=== PATIENT | male | born 1950 | race African-American/Black ===

== ENCOUNTER 2016-09-12 03:36 | Emergency (ER) | payer OTHER ==
[~2016-09-12] VITALS: Ht 188 cm; Wt 111.1 kg
[2016-09-12 04:01] LABS: Basophils # (auto) 0 uL; Basophils % (auto) 0.8 % (0.0-2.0); DEFINITIVE VIEW TRANSMISSION; Eosinophils # (auto) 0.1 uL; Eosinophils % (auto) 1.2 % (0.0-7.0); Hematocrit 40.5 % (41.0-53.0); Hemoglobin 12.2 g/dL (13.5-17.5); Lymphocytes # (auto) 1.3 uL; Lymphocytes % (auto) 26.2 % (10.0-50.0); Mean Corpuscular Hemoglobin 23.5 pg (28.0-32.0); Mean Corpuscular Hgb Conc. 30.1 g/dL (32.0-36.0); Mean Platelet Volume 7.7 fL (7.4-10.4); Monocytes # (auto) 0.8 uL; Monocytes % (auto) 15.8 % (0.0-12.0); Neutrophils # (auto) 2.8 uL; Platelet Count (auto) 247 10^3/uL (140-450); Red Cell Distribution Width 15.8 % (11.6-16.0)
[2016-09-12 04:20] LABS: Albumin 3.8 g/dL (3.4-5.0); BUN/Creatinine Ratio 17.9; Calcium 8.7 mg/dL (8.5-10.1); Potassium 3.2 mmol/L (3.5-5.1)
[2016-09-12 04:23] LABS: Bilirubin, Total 0.2 mg/dL (0.2-1.0); Total Protein 7.7 g/dL (6.4-8.2)
[2016-09-12 04:26] LABS: B-Type Natriuretic Peptide 15.67 pg/mL (0-100)
[2016-09-12 04:30] LABS: Temperature: 21.6 C (20.0-25.0)
[2016-09-12 04:43] LABS: INR 1.01 (0.9-1.15); Partial Thromboplastin Time 26.9 sec (22.64-33.71); Prothrombin Time 10.4 sec (9.37-12.3)
[2016-09-12] MEDS ORDERED: LIDOCAINE VISCOUS 2% 15ML UD PO ONE (04:45)
[2016-09-12] MEDS ORDERED: ALUM & MAG HYDROX-SIMETH LIQ(MAALOX) 30 ML PO ONE (04:45)
[2016-09-12] MEDS ORDERED: DONNATAL 5ml ORAL Elix (BELLADONNA ALK-PHENOBARB) PO ONE (04:45)
[2016-09-12 05:01] VITALS: BP 140/81
== END 2016-09-12 06:20 | disposition home or self-care (01) ==
LOC: ER 03:43
DX: I10 Essential (primary) hypertension (principal); K21.9 Gastro-esophageal reflux disease without esophagitis
CPT/HCPCS: 36415; 71010; 80053; 83735; 83880; 84484; 85025; 85610; 85730; 93005

== ENCOUNTER 2017-03-06 05:14 | Emergency (ER) | payer OTHER ==
[~2017-03-06] VITALS: Ht 188 cm; Wt 111.1 kg
[2017-03-06 05:34] VITALS: BP 153/97
[2017-03-06] MEDS ORDERED: DONNATAL 5ml ORAL Elix (BELLADONNA ALK-PHENOBARB) PO ONE (07:15)
[2017-03-06] MEDS ORDERED: SODIUM CHLORIDE 0.9% 1,000 ML IV ONE ×2 (07:15)
[2017-03-06] MEDS ORDERED: PANTOPRAZOLE SODIUM 40 MG/10 ML VIAL IV ONE (07:15)
[2017-03-06] MEDS ORDERED: ALUM & MAG HYDROX-SIMETH LIQ(MAALOX) 30 ML PO ONE (07:15)
[2017-03-06] MEDS ORDERED: LIDOCAINE VISCOUS 2% 15ML UD PO ONE (07:15)
[2017-03-06] MEDS ORDERED: ONDANSETRON HCL 4 MG/2 ML VIAL IV ONE (07:15)
[2017-03-06] MEDS ORDERED: LOPERAMIDE HCL 2 MG CAP PO ONE (07:30)
[2017-03-06 07:53] LABS: Basophils # (auto) 0 uL; Basophils % (auto) 0.2 % (0.0-2.0); CONDITION Y; DEFINITIVE SEE PRINTOUT; Eosinophils # (auto) 0.1 uL; Eosinophils % (auto) 1.1 % (0.0-7.0); Hematocrit 40.9 % (41.0-53.0); Hemoglobin 13.3 g/dL (13.5-17.5); Lymphocytes # (auto) 0.9 uL; Lymphocytes % (auto) 19.3 % (10.0-50.0); Mean Corpuscular Hemoglobin 24.8 pg (28.0-32.0); Mean Corpuscular Hgb Conc. 32.4 g/dL (32.0-36.0); Mean Corpuscular Volume 76.5 fL (80.0-100.0); Mean Platelet Volume 8.1 fL (7.4-10.4); Monocytes # (auto) 0.7 uL; Monocytes % (auto) 15.4 % (0.0-12.0); Platelet Count (auto) 247 10^3/uL (140-450); Red Cell Distribution Width 15.1 % (11.6-16.0); White Blood Cell 4.6 10^3/uL (4.4-10.8)
[2017-03-06 08:06] LABS: Albumin 3.5 g/dL (3.4-5.0); Amylase 51 U/L (25-115); Anion Gap 11 (5-15); Aspartate Aminotransferase 23 U/L (15-37); BUN/Creatinine Ratio 13.7; Blood Urea Nitrogen 14 mg/dL (7-18); Carbon Dioxide 22 mmol/L (21-32); Chloride 106 mmol/L (98-107); GFR African American 95 mL/min; GFR Non-African American 78 mL/min; Glucose 100 mg/dL (74-106); Sodium 139 mmol/L (136-145)
[2017-03-06 08:12] LABS: INR 1.05 (0.9-1.15); Partial Thromboplastin Time 29.8 sec (22.64-33.71); Prothrombin Time 11.4 sec (9.37-12.3)
[2017-03-06] MEDS ORDERED: POTASSIUM CHL 10% (20 MEQ/15ML) ORAL SOLN PO ONE (08:15)
[2017-03-06 08:16] LABS: Alkaline Phosphatase 70 U/L (45-117); Bilirubin, Total 0.3 mg/dL (0.2-1.0); Total Protein 8.1 g/dL (6.4-8.2)
== END 2017-03-06 09:23 | disposition home or self-care (01) ==
LOC: ER 05:14
DX: E86.0 Dehydration (principal); K52.9 Noninfective gastroenteritis and colitis, unspecified; K21.9 Gastro-esophageal reflux disease without esophagitis; I10 Essential (primary) hypertension
CPT/HCPCS: 36415; 71010; 74176; 80053; 82150; 83690; 84484; 85025; 85610; 85730; 93005; 96361; 96374; 96375; 99285; C9113; J2405; J7030

== ENCOUNTER 2021-05-23 19:25 | Emergency (ER) | payer OTHER ==
[~2021-05-23] VITALS: Ht 188 cm; Wt 127.0 kg
[2021-05-24 02:12] VITALS: BP 189/93
== END 2021-05-24 02:17 | disposition home or self-care (01) ==
LOC: ER 19:26
DX: I82.401 Acute embolism and thrombosis of unspecified deep veins of right lower extremity (principal); E66.9 Obesity, unspecified; Z68.35 Body mass index [BMI] 35.0-35.9, adult; I10 Essential (primary) hypertension; K21.9 Gastro-esophageal reflux disease without esophagitis
CPT/HCPCS: 93971

== ENCOUNTER 2022-05-04 09:43 | Emergency (ER) | payer OTHER ==
[~2022-05-04] VITALS: Ht 188 cm; Wt 118.0 kg
[2022-05-04 10:31] LABS: Basophils # (auto) 0 10 ^3/uL (0-0.2); Eosinophils # (auto) 0 10 ^3/uL (0-0.8); Hemoglobin 12.3 g/dL (13.5-17.5); Lymphocytes # (auto) 1.2 10 ^3/uL (0.4-5.4); Monocytes # (auto) 0.5 10 ^3/uL (0-1.3); Neutrophils # (auto) 2.1 10 ^3/uL (1.6-8.6); Nucleated Red Blood Cells % 0.1 %
[2022-05-04 10:34] LABS: Basophils % (auto) 0.7 % (0.0-2.0); Eosinophils % (auto) 0.5 % (0.0-7.0); Hematocrit 37.9 % (41.0-53.0); Lymphocytes % (auto) 30.3 % (10.0-50.0); Mean Corpuscular Hemoglobin 24.7 pg (28.0-32.0); Mean Corpuscular Hgb Conc. 32.5 g/dL (32.0-36.0); Mean Corpuscular Volume 75.9 fL (80.0-100.0); Monocytes % (auto) 13.5 % (0.0-12.0); Red Blood Cells 4.99 10^6/uL (4.5-5.90); Red Cell Distribution Width 15.1 % (11.8-14.3); White Blood Cell 3.9 10^3/uL (4.4-10.8)
[2022-05-04 10:45] LABS: Albumin 3.7 g/dL (3.4-5.0); Calcium 8.6 mg/dL (8.5-10.1); Potassium 3.2 mmol/L (3.5-5.1)
[2022-05-04 10:51] LABS: Bilirubin, Total 0.5 mg/dL (0.2-1.0); Total Protein 7.4 g/dL (6.4-8.2)
[2022-05-04] MEDS ORDERED: ALUM & MAG HYDROX-SIMETH LIQ(MAALOX) 30 ML PO ONE (12:00)
[2022-05-04] MEDS ORDERED: LIDOCAINE VISCOUS 2% 15ML UD MT ONE (13:30)
[2022-05-04] MEDS ORDERED: DONNATAL 5ml ORAL Elix (BELLADONNA ALK-PHENOBARB) PO ONE (13:30)
[2022-05-04] MEDS ORDERED: MAA30LQ GT (15:27)
[2022-05-04] MEDS ORDERED: FAMO20TA10 GT (15:27)
[2022-05-04 15:36] VITALS: BP 158/80
== END 2022-05-04 15:21 | disposition home or self-care (01) ==
LOC: ER 09:43
DX: K21.9 Gastro-esophageal reflux disease without esophagitis (principal); I10 Essential (primary) hypertension
CPT/HCPCS: 36415; 80053; 84484; 85025; 93005

== ENCOUNTER 2025-05-22 10:46 | Inpatient (IN) | payer OTHER ==
[~2025-05-22] VITALS: Ht 188 cm; Wt 108.5 kg
[~2025-05-22 10:46] MED LIST: FAMO20TA10 GT; MAA30LQ GT
--- NOTE | 2025-05-22 10:56 | ED.PDOC ---
HPI Comments [id number]-male presents with c/c of chest discomfort. Patient endorses on sudden, unprovoked, and atraumatic onset of symptoms after waking up from his sleep at 0700, this morning. He describes pain as a burning sensation emanating from his abdomen and feeling similar to acid reflux/heartburn he has experienced in the past. No relief with [id number] Pepto-Bismol use. Patient reports excessive burping, exacerbated even further following 7 up carbonated soda intake. Usually, he states on being treated in the ER for this in the past with a GI cocktail. Denies any radiation. Denies any further acute symptoms at this time. Chief Complaint: Chest Pain Time Seen by MD: 10:55 Primary Care Provider: OLIVIA Reviewed Notes: Nurses Notes, Medications, Allergies Allergies: Coded Allergies: NO KNOWN ALLERGIES (Unverified , 11/19/14) Home Meds Active Scripts Famotidine (PEPCID TABLET) 20 Mg Tb, 20 MG GT BID, #30 TAB Prov:BRADEN LAMAS MD 05/04/22 Alum & Mag Hydrox-Simethicone (Maalox Plus) 30 Ml Ss, 30 ML GT Q6HPRN PRN, #355 ML Prov:BRADEN LAMAS MD 05/04/22 Information Source: Patient Mode of Arrival: Ambulatory Severity: Moderate Timing: Hours Duration: Since onset Prehospital treatment: Other (see HPI) Past Medical History PAST MEDICAL HISTORY: GERD, HTN Surgical History: Denies all surgeries Family History Family History: Reviewed,noncontributory to illness Social History Smoker: Non-Smoker Alcohol: Denies ETOH Use Drugs: Denies Drug Use Lives In: Home All Other Systems: Reviewed and Negative (Comprehensive review of systems are negative unless stated in HPI) Physical Exam General Appearance: No Apparent Distress, Normal HEENT: Normal ENT Inspection, Pharynx Normal, TMs Normal Neck: Full Range of Motion, Non-Tender, Normal, Normal Inspection Respiratory: Chest Non-Tender, Lungs Clear, No Accessory Muscle Use, No Respiratory Distress, Normal Breath Sounds Cardiovascular: No Edema, No JVD, No Murmur, No Gallop, Normal Peripheral Pulses, Regular Rate/Rhythm Breast Exam: Deferred Gastrointestinal: No Organomegaly, Non Tender, No Pulsatile Mass, Normal Bowel Sounds, Soft Genitalia: Deferred Pelvic: Deferred Rectal: Deferred Extremities: No calf tenderness, Normal capillary refill, Normal inspection, Normal range of motion, Non-tender, No pedal edema Musculoskeletal : Apperance: Normal Neurologic: Alert, straightedge man II-XII nml as Tested, No Motor Deficits, Normal Affect, Normal Mood, No Sensory Deficits Cerebellar Function: Normal Reflexes: Normal Skin: Dry, Normal Color, Warm Lymphatic: No Adenopathy EKG EKG #1: Comments 88 sinus rhythm prolonged left ventricular hypertrophy. No significant ST changes EKG #2: Comments EKG 2. At 11:47 a.m. sinus rhythm rate of 79 occasional PVCs. Left ventricular hypertrophy. Was a procedure done? Was a procedure done?: No CP Differential Dx Differential Diagnosis: Other Differential Diagnosis: Other Differential Diagnosis: Angina, Cholelithiasis, Costochondritis, Esophageal reflux/spasm, Gastritis, Myocardial Infarction, Pneumonia, Pneumothorax, Pulmonary Embolus, Other X-Ray, Labs, Meds, VS Vital Signs Date Time Temp Pulse Resp B/P (MAP) Pulse Ox O2 Delivery O2 Flow Rate FiO2 05/22/25 12:30 98.0 75 16 128/83 (98) 95 98.0 05/22/25 11:50 79 05/22/25 10:52 88 05/22/25 10:52 98.4 86 18 157/91 99 98.4 Lab Test 05/22/25 11:11 Range/Units White Blood Count 4.3 L 4.4-10.8 10^3/uL Red Blood Count 4.74 4.5-5.90 10^6/uL Hemoglobin 12.0 L 13.5-17.5 g/dL Hematocrit 36.3 L 41.0-53.0 % Mean Corpuscular Volume 76.7 L 80.0-100.0 fL Mean Corpuscular Hemoglobin 25.3 L 28.0-32.0 pg Mean Corpuscular Hemoglobin Concent 32.9 32.0-36.0 g/dL Red Cell Distribution Width 15.2 H 11.8-14.3 % Platelet Count 240 140-450 10^3/uL Mean Platelet Volume 8.1 6.9-10.8 fL Neutrophils (%) (Auto) 50.4 37.0-80.0 % Lymphocytes (%) (Auto) 36.9 10.0-50.0 % Monocytes (%) (Auto) 11.9 0.0-12.0 % Eosinophils (%) (Auto) 0.6 0.0-7.0 % Basophils (%) (Auto) 0.2 0.0-2.0 % Neutrophils # (Auto) 2.2 1.6-8.6 10 ^3/uL Lymphocytes # (Auto) 1.6 0.4-5.4 10 ^3/uL Monocytes # (Auto) 0.5 0-1.3 10 ^3/uL Eosinophils # (Auto) 0 0-0.8 10 ^3/uL Basophils # (Auto) 0 0-0.2 10 ^3/uL Nucleated Red Blood Cells 0.1 % Sodium Level 139 136-145 mmol/L Potassium Level 2.9 L 3.5-5.1 mmol/L Chloride Level 100 98-107 mmol/L Carbon Dioxide Level 29 20-31 mmol/L Anion Gap 10 5-15 Blood Urea Nitrogen 9 9-23 mg/dL Creatinine 1.08 0.700-1.30 mg/dL Glomerular Filtration Rate Calc 72 >90 mL/min BUN/Creatinine Ratio 8.3 L 10.0-20.0 Serum Glucose 144 H 74-106 mg/dL Calcium Level 9.1 8.7-10.4 mg/dL Troponin I High Sensitivity 326 *H </=54 ng/L Current Medications Medications (Trade) Dose Ordered Sig/Jose Route Start Time Stop Time Status Last Admin Aspirin 162 mg ONCE ONCE PO 05/22/25 11:15 05/22/25 11:16 DC 05/22/25 12:43 Al Hydrox/Mg Hydrox/Simethicone (Maalox Plus) 30 ml ONCE ONCE PO 05/22/25 11:45 05/22/25 11:46 DC 05/22/25 12:44 Lidocaine HCl (Xylocaine 2% Viscous) 10 ml ONCE ONCE PO 05/22/25 11:45 05/22/25 11:46 DC 05/22/25 12:44 Ondansetron HCl (Zofran Po) 4 mg ONCE ONCE PO 05/22/25 11:45 05/22/25 11:46 DC 05/22/25 12:[address] [address] Ph: [phone] DIAGNOSTIC IMAGING Diagnostic Imaging Report : [id number] Signed PATIENT: SHARON OLIVA ACCT: [id number] UNIT: [id number] : 1950 LOC: ER ROOM / BED: / AGE / SEX: 75 / M ADM STATUS: REG ER SERVICE 1111 ORDERING PHYSICIAN: PORFIRIO DALEY MD PROCEDURE(s): CXR2 - CHEST TWO VIEWS ROUTINE REASON: Chest pain ORDER NUMBER(s): [id number], ACCESSION NUMBER(s): [id number] CLINICAL INFORMATION: Chest pain. TECHNIQUE: Frontal and lateral chest radiographs were obtained. COMPARISON: None FINDINGS: Lungs: Clear. Cardiac: Heart size is within normal limits. Pulmonary vasculature: Unremarkable Mediastinum/lizeth: Moderate atherosclerotic calcification of the aortic arch. Bones: No evidence of acute osseous abnormality. Other: No other significant finding. IMPRESSION: No evidence of acute disease in the chest. 75-year-old male presents here with chest discomfort that began this morning when he woke up. He states it feels like heartburn. He states it mcknight and he is burping up gas. He states he took 7 up and more gas came out. He states he is often in the ER for this and the GI cocktail helps. Denies any radiation to the left arm or left jaw. At this time I have ordered a CBC BMP troponin EKG chest x-ray. As well as a GI cocktail and Zofran. CBC BMP have returned mostly normal. He does have a low potassium of 2.9 which I have repleted. Troponin however is elevated at 326. Chest x-ray unremarkable. I had a long conversation with the patient and advised him I am concerned about an NSTEMI. He states he is continuing to have some chest discomfort. Despite the medications. Patient is agreeable to staying in the hospital. I have written for aspirin here in the ER. Time of 1ST Reevaluation: 11:25 Reevaluation 1ST: Unchanged Patient Education/Counseling: Diagnosis, Treatment Family Education/Counseling: No Family Present SEPSIS Sepsis Screen Physician Orders Electrocardigram (05/22/25 14:01) Troponin-I Hs (05/22/25 12:11) Troponin-I Hs (05/22/25 14:11) Chest Two Views Routine (05/22/25 11:11) Potassium Er Tablet (Klor-Con Tablet) (05/22/25 13:00) Vital Signs Date Time Temp Pulse Resp B/P (MAP) Pulse Ox O2 Delivery O2 Flow Rate FiO2 05/22/25 12:30 98.0 75 16 128/83 (98) 95 98.0 05/22/25 11:50 79 05/22/25 10:52 88 05/22/25 10:52 98.4 86 18 157/91 99 98.4 Laboratory Tests Test 05/22/25 11:11 White Blood Count 4.3 10^3/uL (4.4-10.8) L Medications Medications Dose Ordered Sig/Jose Route Start Time Stop Time Status Last Admin Dose Admin Al Hydrox/Mg Hydrox/Simethicone 30 ml ONCE ONCE PO 05/22/25 11:45 05/22/25 11:46 DC 05/22/25 12:44 Aspirin 162 mg ONCE ONCE PO 05/22/25 11:15 05/22/25 11:16 DC 05/22/25 12:43 Lidocaine HCl 10 ml ONCE ONCE PO 05/22/25 11:45 05/22/25 11:46 DC 05/22/25 12:44 Ondansetron HCl 4 mg ONCE ONCE PO 05/22/25 11:45 05/22/25 11:46 DC 05/22/25 12:43 Departure 1 Departure Time of Disposition: 12:57 Impression: Primary Impression: Chest pain Qualified Codes: R07.9 - Chest pain, unspecified Additional Impression: NSTEMI (non-ST elevated myocardial infarction) Disposition: ADMITTED INPATIENT Condition: Serious Critical Care Note Critical Care Time?: Yes (35 min-critical care time only) Stability Stability form required: No Heart Score Heart Score: Heart Score Response (Comments) Value History Moderate Suspicious 1 EKG Repolarization Disturb 1 Age >65 2 Risk Factors 1 or 2 risk factors 1 Troponin 1-2 x's Normal limit 1 Total 6 I personally scribed for PORFIRIO DALEY MD ([email or web address]) on 05/22/25 at 12:22. Electronically submitted by Roger Salgado ([email or web address]). I personally scribed for PORFIRIO DALEY MD ([email or web address]) on 05/22/25 at 12:27. Electronically submitted by Homa Alas ([facility]). PORFIRIO DALEY MD May 22, 2025 10:56
--- NOTE | 2025-05-22 11:02 | ECG ---
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
--- NOTE | 2025-05-22 11:44 | DVH ---
CLINICAL INFORMATION: Chest pain. TECHNIQUE: Frontal and lateral chest radiographs were obtained. COMPARISON: None FINDINGS: Lungs: Clear. Cardiac: Heart size is within normal limits. Pulmonary vasculature: Unremarkable Mediastinum/lizeth: Moderate atherosclerotic calcification of the aortic arch. Bones: No evidence of acute osseous abnormality. Other: No other significant finding. IMPRESSION: No evidence of acute disease in the chest.
[2025-05-22 11:47] LABS: Hemoglobin 12.0 g/dL (13.5-17.5)
[2025-05-22 11:48] LABS: Hematocrit 36.3 % (41.0-53.0); Mean Corpuscular Hemoglobin 25.3 pg (28.0-32.0); Mean Corpuscular Volume 76.7 fL (80.0-100.0); Nucleated Red Blood Cells % 0.1 %
[2025-05-22 11:56] LABS: Chloride 100 mmol/L (98-107); Sodium 139 mmol/L (136-145)
[2025-05-22 11:57] LABS: Anion Gap 10 (5-15); Calcium 9.1 mg/dL (8.7-10.4); Carbon Dioxide 29 mmol/L (20-31)
[2025-05-22 12:02] LABS: BUN/Creatinine Ratio 8.3 (10.0-20.0); Blood Urea Nitrogen 9 mg/dL (9-23)
[2025-05-22 12:06] LABS: Glucose 144 mg/dL (74-106); Potassium 2.9 mmol/L (3.5-5.1)
[2025-05-22] MEDS: ONDANSETRON ODT 4 MG TAB PO ONE (12:43)
[2025-05-22] MEDS: LIDOCAINE VISCOUS 2% 15ML UD PO ONE (12:44)
[2025-05-22] MEDS: MAALOX PLUS or MAALOX 30 ML PO ONE (12:44)
--- NOTE | 2025-05-22 12:44 | ECG ---
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
[2025-05-22] MEDS: POTASSIUM CHL 20 Meq TABLET PO ONE (14:22)
[2025-05-22] MEDS ORDERED: NIFE1TAB30 PO (15:38)
--- NOTE | 2025-05-22 16:14 | DVHHP2 ---
History of Present Illness Reason for Visit: Chest pain History of Present Illness Jeffery Marrero is a 75-year-old male with past medical history of GERD and hypertension who presents to the ED with chest pain that started this morning at 7, reports that it woke him up from his sleep. Reports it as a burning sensation around his epigastric area reports that the burning radiates from the left to the right. He reports that there are no triggering or alleviating factors. Patient reports that in the past he had excessive burping which exacerbated the pain. He also reports that he received a GI cocktail in the past. Patient also reports that he is ambulatory without any DMEs. Patient denies any recent trauma or injury, recent sick contacts, recent travels, recent ingestion of spoiled food, shortness of breath, fever, chills, lightheadedness, weakness, dizziness, abdominal pain, nausea, vomiting, diarrhea, or urinary symptoms. Cardiovascular: HTN GI: GERD Past Surgical History: None Family History: None Smoke: No ALCOHOL: none Drugs: None Lives: with Family Domestic Violence: Neg Review of Systems Cardiovascular: Chest Pain Allergies: Coded Allergies: NO KNOWN ALLERGIES (Unverified , 11/19/14) Exam Vital Signs Vital Signs Date Time Temp Pulse Resp B/P (MAP) Pulse Ox O2 Delivery O2 Flow Rate FiO2 05/22/25 14:31 97.8 83 18 146/75 (98) 99 97.8 General Appearance: Alert, Oriented X3, Cooperative, No acute distress HEENT: Atraumatic, PERRLA, EOMI, Mucous membr. moist/pink Respiratory: Normal air movement Cardiovascular: Regular rate, Normal S1, Normal S2 Abdominal: Normal bowel sounds, Soft Extremities: No clubbing, No cyanosis, No edema, Normal pulses Skin: No significant lesion Neuro: Normal speech, Strength at 5/5 X4 ext, Normal tone, Sensation intact Psych/Mental Status: Mental status NL, Mood NL Labs/Xrays Labs Test 05/22/25 14:51 05/22/25 11:11 Range/Units White Blood Count 4.3 L 4.4-10.8 10^3/uL Red Blood Count 4.74 4.5-5.90 10^6/uL Hemoglobin 12.0 L 13.5-17.5 g/dL Hematocrit 36.3 L 41.0-53.0 % Mean Corpuscular Volume 76.7 L 80.0-100.0 fL Mean Corpuscular Hemoglobin 25.3 L 28.0-32.0 pg Mean Corpuscular Hemoglobin Concent 32.9 32.0-36.0 g/dL Red Cell Distribution Width 15.2 H 11.8-14.3 % Platelet Count 240 140-450 10^3/uL Mean Platelet Volume 8.1 6.9-10.8 fL Neutrophils (%) (Auto) 50.4 37.0-80.0 % Lymphocytes (%) (Auto) 36.9 10.0-50.0 % Monocytes (%) (Auto) 11.9 0.0-12.0 % Eosinophils (%) (Auto) 0.6 0.0-7.0 % Basophils (%) (Auto) 0.2 0.0-2.0 % Neutrophils # (Auto) 2.2 1.6-8.6 10 ^3/uL Lymphocytes # (Auto) 1.6 0.4-5.4 10 ^3/uL Monocytes # (Auto) 0.5 0-1.3 10 ^3/uL Eosinophils # (Auto) 0 0-0.8 10 ^3/uL Basophils # (Auto) 0 0-0.2 10 ^3/uL Nucleated Red Blood Cells 0.1 % Sodium Level 139 136-145 mmol/L Potassium Level 2.9 L 3.5-5.1 mmol/L Chloride Level 100 98-107 mmol/L Carbon Dioxide Level 29 20-31 mmol/L Anion Gap 10 5-15 Blood Urea Nitrogen 9 9-23 mg/dL Creatinine 1.08 0.700-1.30 mg/dL Glomerular Filtration Rate Calc 72 >90 mL/min BUN/Creatinine Ratio 8.3 L 10.0-20.0 Serum Glucose 144 H 74-106 mg/dL Calcium Level 9.1 8.7-10.4 mg/dL CLINICAL INFORMATION: Chest pain. TECHNIQUE: Frontal and lateral chest radiographs were obtained. COMPARISON: None FINDINGS: Lungs: Clear. Cardiac: Heart size is within normal limits. Pulmonary vasculature: Unremarkable Mediastinum/lizeth: Moderate atherosclerotic calcification of the aortic arch. Bones: No evidence of acute osseous abnormality. Other: No other significant finding. IMPRESSION: No evidence of acute disease in the chest. SEPSIS Sepsis Screen Date sepsis recognized/suspect: May 22, 2025 Time Sepsis recognized/suspect: 1052 Recent Procedure: No On Antibiotic Therapy: No Respiratory Rate >20: No Heart Rate >90: No Temp<36 C (96.8 F) or >38.3 C: No SBP <90 or MAP <65 mmHG: No New Acute Mental Status Change: No Is the patient on CPAP, BIPAP,: No Physician Orders Electrocardigram (05/22/25 14:01) Troponin-I Hs (05/22/25 14:11) Chest Two Views Routine (05/22/25 11:11) * Cardiology Consult (05/22/25 14:18) Vital Signs Date Time Temp Pulse Resp B/P (MAP) Pulse Ox O2 Delivery O2 Flow Rate FiO2 05/22/25 14:31 97.8 83 18 146/75 (98) 99 97.8 05/22/25 13:48 76 05/22/25 12:30 98.0 75 16 128/83 (98) 95 98.0 05/22/25 11:50 79 05/22/25 10:52 88 05/22/25 10:52 98.4 86 18 157/91 99 98.4 Laboratory Tests Test 05/22/25 11:11 White Blood Count 4.3 10^3/uL (4.4-10.8) L Medications Medications Dose Ordered Sig/Jose Route Start Time Stop Time Status Last Admin Dose Admin Al Hydrox/Mg Hydrox/Simethicone 30 ml ONCE ONCE PO 05/22/25 11:45 05/22/25 11:46 DC 05/22/25 12:44 30 ML Aspirin 162 mg ONCE ONCE PO 05/22/25 11:15 05/22/25 11:16 DC 05/22/25 12:43 162 MG Lidocaine HCl 10 ml ONCE ONCE PO 05/22/25 11:45 05/22/25 11:46 DC 05/22/25 12:44 10 ML Ondansetron HCl 4 mg ONCE ONCE PO 05/22/25 11:45 05/22/25 11:46 DC 05/22/25 12:43 4 MG Potassium Chloride 40 meq ONCE ONCE PO 05/22/25 13:00 05/22/25 13:01 DC 05/22/25 14:22 40 MEQ Assessment/Plan Assessment/Plan Assessment NSTEMI Hypokalemia Hyperglycemia History of GERD [facility] of [facility] ISS and Accu-Cheks Aspirin + statin ACS workup Echo ordered Antiemetics Pain management Chest x-ray Trend troponins EKGs noted NPO until Cardiology sees Home medications reconciled DVT prophylaxis-therapeutic Lovenox PUD prophylaxis-PPIs Discussed plan of care with patient and nurse [place] [id number] Preventive counseling healthy eating habits, physical activity, and regular checkups Plan discussed with: Patient Date of Service: May 22, 2025 Billing Provider: DAVI MADSEN Common Visit Codes: [id number] INP/OBS CARE (HIGH) Secondary Visit Codes: [id number] COUNSELING IND DAVI MADSEN May 22, 2025 16:14
[2025-05-22] MEDS: ONDANSETRON HCL 4 MG/2 ML VIAL IV ONE (16:15)
[2025-05-22] MEDS ORDERED: MORPHINE SULFATE INJ 2 MG/ml SYRG IV PRN (16:15)
[2025-05-22] MEDS: MORPHINE SULFATE 4 MG/ML SYR/VIAL IV ONE (16:15)
[2025-05-22] MEDS ORDERED: MORPHINE SULFATE 4 MG/ML SYR/VIAL IV PRN (16:15)
[2025-05-22] MEDS ORDERED: ONDANSETRON HCL 4 MG/2 ML VIAL IV PRN (16:15)
[2025-05-22] MEDS ORDERED: NITROGLYCERIN 0.4 MG SL TAB SL PRN ×2 (16:15)
[2025-05-22 16:58] VITALS: PULSE 66; RESP 14; O2SAT 98
[2025-05-22 17:02] LABS: Urine Protein, UAD Negative (Negative)
[2025-05-22 17:13] LABS: Amphetamine Screen, Urine Neg (NEGATIVE); Barbiturate Scree,Urine Neg (NEGATIVE); Benzodiazephine Screen, Urine Neg (NEGATIVE); Cannabinoid Screen, Urine Neg (NEGATIVE); Cocaine Screen, Urine Neg (NEGATIVE); Opiate Scree,Urine Neg (NEGATIVE); Phencyclidine Screen, Urine Neg (NEGATIVE)
[2025-05-22] MEDS: FAMOTIDINE (10MG/ML) 2ML VL IV SCH (17:39)
--- NOTE | 2025-05-22 18:08 | ECG ---
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
[2025-05-22] MEDS ORDERED: HEPARIN DRIP/D5W 100UNITS/ML 250 ML IV SCH (18:45)
--- NOTE | 2025-05-22 18:48 | DVHINCON2 ---
Date Seen: May 22, [address] Rodrigues Reason for Consultation NSTEMI History of Present Illness 75-year-old male presents to the ED with complaint of epigastric pain that began this morning. Torch Operator consulted due to rising troponin levels ( 326, 827, 2103, 5578) . The patient reports waking up with epigastric discomfort this morning and initially took Pepto-Bismol with some relief. However, the pain recurred a few hours later, prompting him to come to the emergency department. On assessment he reports ongoing mild epigastric pain. He denies diaphoresis shortness of breath, or dyspnea his blood pressure is elevated at one 60/82 mmHg. He reports having two prior coronary angiograms, the most recent about 10 years ago, with no interventions performed. He denies tobacco, alcohol, or illicit drug use. Past medical history of hypertension and GERD. Past Medical History As stated in HPI Past Surgical History Coronary angiogram Family History: Patient reports no known family medical history. Family History Reviewed, non-contributory to the management of this case. Social History The patient lives at home, denies smoking, alcohol or illicit drugs abuse. Allergies: Coded Allergies: NO KNOWN ALLERGIES (Unverified , 11/19/14) Home Meds Active Scripts Famotidine (PEPCID TABLET) 20 Mg Tb, 20 MG GT BID, #30 TAB Prov:BRADEN LAMAS MD 05/04/22 Alum & Mag Hydrox-Simethicone (Maalox Plus) 30 Ml Ss, 30 ML GT Q6HPRN PRN, #355 ML Prov:BRAEDN LAMAS MD 05/04/22 Reported Medications Nifedipine (Nifedipine Er) 60 Mg Tab, 1 TAB PO DAILY 05/22/25 Current Medications Current Medications Medications (Trade) Dose Ordered Sig/Jose Route PRN Reason Start Time Stop Time Status Last Admin Famotidine (Pepcid Tablet) 20 mg BID GT 05/22/25 22:00 Cancel Enoxaparin Sodium (Lovenox) 110 mg Q12HR SC 05/22/25 22:00 Aspirin 81 mg DAILY PO 05/23/25 10:00 Atorvastatin Calcium (Lipitor) 40 mg HS PO 05/22/25 22:00 05/22/25 18:41 DC Morphine Sulfate 2 mg Q30MP PRN IV FOR CHEST PAIN 05/22/25 16:15 05/22/25 16:21 DC Acetaminophen (Tylenol Tablet) 650 mg Q6HP PRN PO MILD PAIN (1-3 PAIN SCALE) 05/22/25 16:15 Nitroglycerin (Ntrostat Sublingual) 0.4 mg Q5MINP PRN SL FOR CHEST PAIN 05/22/25 16:15 05/22/25 16:22 DC Ondansetron HCl (Zofran) 4 mg Q4HP PRN IV NAUSEA / VOMITING 05/22/25 16:15 Nitroglycerin (Ntrostat Sublingual) 0.4 mg Q5MINP PRN SL FOR CHEST PAIN 05/22/25 16:15 Morphine Sulfate 2 mg Q30M PRN IV FOR CHEST PAIN 05/22/25 16:15 Famotidine (Pepcid Injection) 20 mg DAILY IV 05/22/25 17:15 05/22/25 17:39 Heparin Sodium/ Dextrose 250 ml @ 13.368 mls/ hr [id number] IV 05/22/25 18:45 UNV Atorvastatin Calcium (Lipitor) 80 mg HS PO 05/22/25 22:00 UNV Review of Systems Constitutional: No symptom reported Ears, Nose, & Throat: No symptom reported Eyes: No symptom reported Neurological: No symptoms reported Pulmonary/Respiratory: No symptom reported Cardiovascular: Epigastric pain Gastrointestinal: No symptom reported Genitourinary: No symptom reported Musculoskeletal: No symptom reported Skin: No symptom reported Psychiatric: No symptom reported Endocrine: No symptom reported Hemotologic/Lymphatic: No symptom reported Vital Signs Vital Signs Date Time Temp Pulse Resp B/P (MAP) Pulse Ox O2 Delivery O2 Flow Rate FiO2 05/22/25 16:58 98.3 70 16 146/80 (102) 98 98.3 05/22/25 16:58 Room Air* 0 21 Physical Exam INITIAL VITAL SIGNS: Reviewed by me GENERAL: Alert and interactive. No acute distress. HEAD: Head is normocephalic and atraumatic. EYES: EOMI, PERRL. No scleral icterus. No conjunctival injection. ENT: Moist mucous membranes. NECK: Supple, No masses, Full range of motion. RESPIRATORY: No tachypnea. Clear breath sounds bilaterally. No wheezing, rales, rhonchi. CV: Regular rate and rhythm. No murmurs, rubs, or gallops. GI/: Active bowel sounds, soft, nondistended, nontender. No guarding. No rebound. No masses. No CVA tenderness. INTEGUMENTARY: Warm and dry. No obvious rashes. NEUROLOGIC: Alert and oriented. Face is symmetric. Speech is normal. Moves all extremities equally. Labs/Diagnostic Data Labs Test 05/22/25 17:01 05/22/25 16:10 05/22/25 14:51 05/22/25 13:05 Range/Units Troponin I High Sensitivity 5578 *H </=54 ng/L Urine Color Colorless Yellow Urine Clarity Clear Clear Urine pH 6.0 5.0-9.0 Urine Specific [place] 1.004 1.001-1.035 Urine Protein Negative Negative Urine Ketones Negative Negative Urine Blood Negative Negative /uL Urine Nitrite Negative Negative Urine Bilirubin Negative Negative Urine Urobilinogen Normal Negative mg/dL Urine Leukocyte Esterase Negative Negative /uL Urine RBC <1 0 - 3 /hpf Urine Microscopic WBC < 1 0-3 /HPF Urine Squamous Epithelial Cells None seen <5 /hpf Urine Bacteria None seen None Seen /hpf Urine Glucose Normal Normal mg/dL Urine Opiates Screen Neg NEGATIVE Urine Fentanyl Screen Neg NEGATIVE Urine Barbiturates Screen Neg NEGATIVE Urine Phencyclidine Screen Neg NEGATIVE Urine Amphetamines Screen Neg NEGATIVE Urine Benzodiazepines Screen Neg NEGATIVE Urine Cocaine Screen Neg NEGATIVE Urine Cannabinoids Screen Neg NEGATIVE Thyroid Stimulating Hormone (TSH) 1.84 0.55-4.78 uIU/mL Test 05/22/25 11:11 Range/Units Eosinophils (%) (Auto) 0.6 0.0-7.0 % Eosinophils # (Auto) 0 0-0.8 10 ^3/uL Basophils # (Auto) 0 0-0.2 10 ^3/uL Nucleated Red Blood Cells 0.1 % Sodium Level 139 136-145 mmol/L Potassium Level 2.9 L 3.5-5.1 mmol/L Chloride Level 100 98-107 mmol/L Carbon Dioxide Level 29 20-31 mmol/L Anion Gap 10 5-15 Blood Urea Nitrogen 9 9-23 mg/dL Creatinine 1.08 0.700-1.30 mg/dL Glomerular Filtration Rate Calc 72 >90 mL/min BUN/Creatinine Ratio 8.3 L 10.0-20.0 Serum Glucose 144 H 74-106 mg/dL Hemoglobin A1c 5.6 <5.7 % A1C Calcium Level 9.1 8.7-10.4 mg/dL PROCEDURE(s): CXR2 - CHEST TWO VIEWS ROUTINE REASON: Chest pain ORDER NUMBER(s): [id number], ACCESSION NUMBER(s): [id number] CLINICAL INFORMATION: Chest pain. TECHNIQUE: Frontal and lateral chest radiographs were obtained. COMPARISON: None FINDINGS: Lungs: Clear. Cardiac: Heart size is within normal limits. Pulmonary vasculature: Unremarkable Mediastinum/lizeth: Moderate atherosclerotic calcification of the aortic arch. Bones: No evidence of acute osseous abnormality. Other: No other significant finding. IMPRESSION: No evidence of acute disease in the chest. Assessment Non-STEMI possible type 1 Rule out acute coronary syndrome Hypertension GERD Obesity Plan/Recommendation (Dr. Dumas ): NSTEMI with rising troponins. Plan for ischemic workup including echocardiogram and cardiac catheterization. Keep patient NPO after midnight. Initiate ACS protocol with heparin drip, nitroglycerin drip, beta laya, aspirin, and high- dose statins. Discussed plan with patient and agreed with left heart catheterization procedure. Close cardiac surveillance. This medical document was created using an electronic medical record system with voice recognition software and computerized dictation system. Although this document has been carefully reviewed, there might still be some phonetic and typographical errors. Occasional wrong-word or ``sound-alike substitutions may have occurred due to the inherent limitations of voice recognition software. These areas are purely typographical due to imperfections of the software programs and do not reflect any compromise in the patient's medical care. Please read the chart carefully and recognize, using context, where these substitutions have occurred. Plan discussed with: Patient Plan discussed with: Patient NYHA Physical activity limitations: NA Date of Service: May 22, 2025 Billing Provider: JR DUMAS MD Cardiology Common Codes: CONSULT ONLY Cardiology Consultation Codes: [id number] CONSULT <60MIN [facility] May 22, 2025 18:48
[2025-05-22 19:04] LABS: Hemoglobin 11.8 g/dL (13.5-17.5)
[2025-05-22 19:05] LABS: Hematocrit 36.2 % (41.0-53.0); Mean Corpuscular Hemoglobin 25.6 pg (28.0-32.0); Mean Corpuscular Volume 78.4 fL (80.0-100.0); Nucleated Red Blood Cells % 0.3 %
[2025-05-22 19:11] LABS: INR 1.05 (0.9-1.15); Partial Thromboplastin Time 28.8 SEC (24.5-34.5); Prothrombin Time 11.1 sec (9.3-11.8)
[2025-05-22] MEDS: HEPARIN SODIUM (PORCINE) 5000 UNITS/ML 1ML VIAL IV ONE (19:13)
[2025-05-22] MEDS: METOPROLOL TARTRATE 1MG/1ML-5ML VIAL IV ONE (20:14)
[2025-05-22] MEDS: HEPARIN DRIP/D5W 100UNITS/ML 250 ML IV SCH (20:23)
[2025-05-22] MEDS: SODIUM CHLORIDE 0.9% 1,000 ML IV SCH (20:30)
[2025-05-22] MEDS: NITROGLYCERIN 50MG/250ML 250 ML IV SCH (20:56)
[2025-05-22] MEDS ORDERED: ATORVASTATIN 20 MG TAB PO SCH (22:00)
[2025-05-22] MEDS ORDERED: ENOXAPARIN SOD 120 MG/0.8 ML SYRINGE SC SCH (22:00)
[2025-05-22] MEDS ORDERED: FAMOTIDINE 20 MG TAB GT SCH (22:00)
[2025-05-22] MEDS: ATORVASTATIN 20 MG TAB PO SCH (22:49)
--- NOTE | 2025-05-22 23:52 | DVHINCON2 ---
Date Seen: May 22, [address] Rodrigues Reason for Consultation NSTEMI History of Present Illness This is a 75-year-old male with a past medical history of hypertension and GERD presents to the ED with a complaint of epigastric pain that began this morning. The patient reports waking up with epigastric discomfort this morning and initially took Pepto-Bismol with some relief.However, the pain recurred a few hours later, prompting him to come to the emergency department. On assessment he reports ongoing mild epigastric pain. He denies diaphoresis shortness of breath, or dyspnea his blood pressure is elevated at one 60/82 mmHg. He reorts having two prior coronary angiograms, the most recent about 10 years ago, with no interventions performed. He denies tobacco, alcohol, or illicit drug use. Chest x-ray shows NAD. Cardiology was consulted due to rising troponin levels ( 326, 827, 2103, 5578) Past Medical History As stated in HPI Past Surgical History Coronary angiogram Family History: Patient reports no known family medical history. Allergies: Coded Allergies: NO KNOWN ALLERGIES (Unverified , 11/19/14) Home Meds Active Scripts Famotidine (PEPCID TABLET) 20 Mg Tb, 20 MG GT BID, #30 TAB Prov:BRADEN LAMAS MD 05/04/22 Alum & Mag Hydrox-Simethicone (Maalox Plus) 30 Ml Ss, 30 ML GT Q6HPRN PRN, #355 ML Prov:BRADEN LAMAS MD 05/04/22 Reported Medications Nifedipine (Nifedipine Er) 60 Mg Tab, 1 TAB PO DAILY 05/22/25 Current Medications Current Medications Medications (Trade) Dose Ordered Sig/Jose Route PRN Reason Start Time Stop Time Status Last Admin Famotidine (Pepcid Tablet) 20 mg BID GT 05/22/25 22:00 Cancel Enoxaparin Sodium (Lovenox) 110 mg Q12HR SC 05/22/25 22:00 Aspirin 81 mg DAILY PO 05/23/25 10:00 Atorvastatin Calcium (Lipitor) 40 mg HS PO 05/22/25 22:00 05/22/25 18:41 DC Morphine Sulfate 2 mg Q30MP PRN IV FOR CHEST PAIN 05/22/25 16:15 05/22/25 16:21 DC Acetaminophen (Tylenol Tablet) 650 mg Q6HP PRN PO MILD PAIN (1-3 PAIN SCALE) 05/22/25 16:15 Nitroglycerin (Ntrostat Sublingual) 0.4 mg Q5MINP PRN SL FOR CHEST PAIN 05/22/25 16:15 05/22/25 16:22 DC Ondansetron HCl (Zofran) 4 mg Q4HP PRN IV NAUSEA / VOMITING 05/22/25 16:15 Nitroglycerin (Ntrostat Sublingual) 0.4 mg Q5MINP PRN SL FOR CHEST PAIN 05/22/25 16:15 Morphine Sulfate 2 mg Q30M PRN IV FOR CHEST PAIN 05/22/25 16:15 Famotidine (Pepcid Injection) 20 mg DAILY IV 05/22/25 17:15 05/22/25 17:39 Heparin Sodium/ Dextrose 250 ml @ 10 mls/hr Q24H IV 05/22/25 18:45 05/22/25 19:15 DC Atorvastatin Calcium (Lipitor) 80 mg HS PO 05/22/25 22:00 Nitroglycerin 250 ml @ 1.5 mls/hr Q24H IV 05/22/25 19:00 Metoprolol Tartrate (Lopressor Tablet) 50 mg BID PO 05/23/25 10:00 Sodium Chloride 1,000 ml @ 100 mls/hr Q10H IV 05/22/25 19:00 Review of Systems Constitutional: No symptom reported Ears, Nose, & Throat: No symptom reported Eyes: No symptom reported Neurological: No symptoms reported Pulmonary/Respiratory: No symptom reported Cardiovascular: Epigastric pain Gastrointestinal: No symptom reported Genitourinary: No symptom reported Musculoskeletal: No symptom reported Skin: No symptom reported Psychiatric: No symptom reported Endocrine: No symptom reported Hemotologic/Lymphatic: No symptom reported Vital Signs Vital Signs Date Time Temp Pulse Resp B/P (MAP) Pulse Ox O2 Delivery O2 Flow Rate FiO2 05/22/25 18:57 71 05/22/25 16:58 98.3 16 146/80 (102) 98 98.3 05/22/25 16:58 Room Air* 0 21 Physical Exam GENERAL: Alert and oriented x 3. No acute distress. EYES: PERRL, EOMI. Anicteric. HENT: Moist mucous membranes. LUNGS: Clear to auscultation bilaterally. CARDIOVASCULAR: Regular rate and rhythm. ABDOMEN: Soft, nontender and nondistended. EXTREMITIES: No edema. NEUROLOGIC: No focal neurological deficits. SKIN: Warm, dry. Labs/Diagnostic Data Labs Test 05/22/25 17:01 05/22/25 16:10 05/22/25 14:51 05/22/25 13:05 Range/Units Troponin I High Sensitivity 5578 *H </=54 ng/L Urine Color Colorless Yellow Urine Clarity Clear Clear Urine pH 6.0 5.0-9.0 Urine Specific [place] 1.004 1.001-1.035 Urine Protein Negative Negative Urine Ketones Negative Negative Urine Blood Negative Negative /uL Urine Nitrite Negative Negative Urine Bilirubin Negative Negative Urine Urobilinogen Normal Negative mg/dL Urine Leukocyte Esterase Negative Negative /uL Urine RBC <1 0 - 3 /hpf Urine Microscopic WBC < 1 0-3 /HPF Urine Squamous Epithelial Cells None seen <5 /hpf Urine Bacteria None seen None Seen /hpf Urine Glucose Normal Normal mg/dL Urine Opiates Screen Neg NEGATIVE Urine Fentanyl Screen Neg NEGATIVE Urine Barbiturates Screen Neg NEGATIVE Urine Phencyclidine Screen Neg NEGATIVE Urine Amphetamines Screen Neg NEGATIVE Urine Benzodiazepines Screen Neg NEGATIVE Urine Cocaine Screen Neg NEGATIVE Urine Cannabinoids Screen Neg NEGATIVE Thyroid Stimulating Hormone (TSH) 1.84 0.55-4.78 uIU/mL Test 05/22/25 11:11 Range/Units Eosinophils (%) (Auto) 0.6 0.0-7.0 % Eosinophils # (Auto) 0 0-0.8 10 ^3/uL Basophils # (Auto) 0 0-0.2 10 ^3/uL Nucleated Red Blood Cells 0.1 % Sodium Level 139 136-145 mmol/L Potassium Level 2.9 L 3.5-5.1 mmol/L Chloride Level 100 98-107 mmol/L Carbon Dioxide Level 29 20-31 mmol/L Anion Gap 10 5-15 Blood Urea Nitrogen 9 9-23 mg/dL Creatinine 1.08 0.700-1.30 mg/dL Glomerular Filtration Rate Calc 72 >90 mL/min BUN/Creatinine Ratio 8.3 L 10.0-20.0 Serum Glucose 144 H 74-106 mg/dL Hemoglobin A1c 5.6 <5.7 % A1C Calcium Level 9.1 8.7-10.4 mg/dL Assessment Non-STEMI possible type 1. Rule out acute coronary syndrome. Hypertension. GERD. Obesity. Plan/Recommendation I agree with your ongoing assessment and care of plan. Patient has been seen by Anbaella Tyler NP on my behalf, her and I discussed the plan with the patient. NSTEMI with rising troponins. Plan for ischemic workup including echocardiogram and cardiac catheterization. Keep patient NPO after midnight. Initiate ACS protocol with heparin drip, nitroglycerin drip, beta laya, as pirin, and high-dose statins. Discussed plan with patient and agreed with left heart catheterization procedure. Close cardiac surveillance. Additional plan as per the hospital course. Plan discussed with: Patient NYHA Physical activity limitations: NA Date of Service: May 22, 2025 Billing Provider: JR DAVENPORT MD Cardiology Common Codes: [id number] INP/OBS CARE (High) Cardiology Consultation Codes: [id number] CONSULT <60MIN JR DAVENPORT MD May 22, 2025 19:20
[2025-05-23] VITALS (10 sets, daily range): BP systolic 148–188; BP diastolic 73–103; PULSE 70–88; RESP 12–18; TEMP 98.1–99.5; O2SAT 20–99
[2025-05-23 01:47] LABS: Mean Corpuscular Volume 77.8 fL (80.0-100.0)
[2025-05-23 01:49] LABS: Hematocrit 36.1 % (41.0-53.0); Hemoglobin 11.6 g/dL (13.5-17.5); Mean Corpuscular Hemoglobin 25.1 pg (28.0-32.0); Nucleated Red Blood Cells % 0.1 %
[2025-05-23 01:59] LABS: Chloride 104 mmol/L (98-107); Sodium 139 mmol/L (136-145)
[2025-05-23 02:00] LABS: Anion Gap 9 (5-15); Carbon Dioxide 26 mmol/L (20-31)
[2025-05-23 02:04] LABS: Calcium 8.4 mg/dL (8.7-10.4); INR 1.06 (0.9-1.15); Partial Thromboplastin Time 41.0 SEC (24.5-34.5); Potassium 3.4 mmol/L (3.5-5.1); Prothrombin Time 11.2 sec (9.3-11.8)
[2025-05-23 02:06] LABS: Magnesium 1.8 mg/dL (1.6-2.6)
[2025-05-23 02:14] LABS: BUN/Creatinine Ratio 6.2 (10.0-20.0); Blood Urea Nitrogen < 5 mg/dL (9-23); Glucose 114 mg/dL (74-106)
[2025-05-23] MEDS: HEPARIN DRIP/D5W 100UNITS/ML 250 ML IV SCH ×2 (02:16→11:25)
[2025-05-23] MEDS: hydrALAZINE HCL 20 MG/ML VL IV PRN (02:24)
[2025-05-23 03:56] LABS: Triglycerides 56 mg/dL (< 150)
[2025-05-23 03:58] LABS: Cholesterol 163 mg/dL (< 200)
[2025-05-23 04:38] LABS: HDL Cholesterol 60 mg/dL (40-59)
[2025-05-23] MEDS: ACETAMINOPHEN 325 MG TAB PO PRN (06:30)
--- NOTE | 2025-05-23 07:10 | ECG ---
[facility] Test Date: 2025-05-22 Test Time: 23:51:44 Pat Name: SHARON OLIVA Department: [facility] ED Patient ID: [facility]-[id number] Room: 0218T Gender: M Return Agent: damaris : [id number] Requested By: DAVI MADSEN Order Number: [id number] Reading MD: Yonatan Hightower Measurements Intervals [place] Rate: 61 P: 46 VT: 250 QRS: -17 QRSD: 101 T: 15 QT: 449 QTc: 453 Interpretive Statements Sinus rhythm Prolonged VT interval Probable left ventricular hypertrophy Anterior Q waves, possibly due to LVH Electronically Signed On 05-25-2025 15:07:50 PDT by Yonatan Hightower Please click the below link to view image of tracing.
[2025-05-23 10:42] LABS: INR 1.08 (0.9-1.15); Partial Thromboplastin Time 45.9 SEC (24.5-34.5); Prothrombin Time 11.4 sec (9.3-11.8)
--- NOTE | 2025-05-23 11:08 | CONS ---
Pharmacy Clinical Information: INCREASE HEPARIN DRIP RATE TO 1400 UNITS/HR PER APTT OF 45.9 (SUBTHERAPEUTIC) NEXT APTT DRAW SCHEDULED FOR 1700 PER RX PROTOCOL DENNISE TRAN PHARMACIST May 23, 2025 11:08
[2025-05-23] MEDS: METOPROLOL TARTRATE 50 MG TAB PO SCH (11:09)
[2025-05-23 16:00] LABS: COVID19 ANTIGEN SOFIA FIA NEGATIVE (NEGATIVE)
[2025-05-23] MEDS: IODIXANOL 320MG/ML 100ML BTL IV ONE ×2 (17:33→18:18)
[2025-05-23] MEDS: LIDOCAINE 2%HCL (LOCAL ANESTH.) INJ 20ML MDV ONE (17:41)
[2025-05-23] MEDS: ANGIOMAX 250 MG VIAL IV ONE ×2 (17:50→18:26)
[2025-05-23] MEDS: fentaNYL CITRATE 100 MCG/2 ML VL ONE (17:51)
[2025-05-23] MEDS: SODIUM CHL 0.9% 50 ML ONE ×2 (17:51→18:26)
[2025-05-23] MEDS: MIDAZOLAM HCL 2MG/2ML 2ml VIAL (1mg/ml) ONE (17:51)
[2025-05-23] MEDS: TICAGRELOR 90 MG TAB ONE (19:18)
[2025-05-23] MEDS: LABETALOL HCL 5 MG/ML ML 20ML VIAL IV ONE (19:22)
[2025-05-23] MEDS ORDERED: hydrALAZINE HCL 20 MG/ML VL IV PRN (19:30)
[2025-05-23] MEDS ORDERED: LABETALOL HCL 20 MG/4 ML VL IV PRN (19:30)
--- NOTE | 2025-05-23 19:41 | DVHPN2 ---
Progress Note - Dictate Date Seen: May 23, 2025 Medical Necessity Reason Pt with a Central, PICC or Fol: No Subjective Patient was seen and evaluated in follow up. Patient is complaining of epigastric and chest pain.The patient is recommended for LHC. Patient is on heparin drip. K 3.4. Telemetry reviewed. vital signs Vital Sign Date Time Temp Pulse Resp B/P (MAP) Pulse Ox O2 Delivery O2 Flow Rate FiO2 05/23/25 17:00 98.2 83 16 162/92 (115) 97 98.2 05/23/25 13:11 Room Air* 0 21 Total Intake and Output 05/22/25 05/22/25 05/23/25 15:00 23:00 07:00 Intake Total 60 ml Balance 60 ml medications Current Medications Medications Dose Ordered Sig/Jose Route Start Time Stop Time Status Last Admin Dose Admin Famotidine 20 mg BID GT 05/22/25 22:00 Cancel Enoxaparin Sodium 110 mg Q12HR SC 05/22/25 22:00 Hold Aspirin 81 mg DAILY PO 05/23/25 10:00 05/23/25 11:09 81 MG Acetaminophen 650 mg Q6HP PRN PO 05/22/25 16:15 05/23/25 06:30 650 MG Ondansetron HCl 4 mg Q4HP PRN IV 05/22/25 16:15 Nitroglycerin 0.4 mg Q5MINP PRN SL 05/22/25 16:15 Morphine Sulfate 2 mg Q30M PRN IV 05/22/25 16:15 Famotidine 20 mg DAILY IV 05/22/25 17:15 05/23/25 11:09 20 MG Atorvastatin Calcium 80 mg HS PO 05/22/25 22:00 05/22/25 22:49 80 MG Metoprolol Tartrate 50 mg BID PO 05/23/25 10:00 05/23/25 11:09 50 MG Sodium Chloride 1,000 ml @ 100 mls/hr Q10H IV 05/22/25 19:00 05/23/25 06:13 100 MLS/HR Hydralazine HCl 10 mg Q6HP PRN IV 05/23/25 00:30 05/23/25 14:00 10 MG objective GENERAL: Alert and oriented x 3. No acute distress. EYES: PERRL, EOMI. Anicteric. HENT: Moist mucous membranes. LUNGS: Clear to auscultation bilaterally. CARDIOVASCULAR: Regular rate and rhythm. ABDOMEN: Soft, nontender and nondistended. EXTREMITIES: No edema. NEUROLOGIC: No focal neurological deficits. SKIN: Warm, dry. laboratory and microbiology Laboratory Tests 05/23/25 01:36 Test 05/23/25 01:36 Range/Units Serum Glucose 114 H 74-106 mg/dL Problem List Non-STEMI possible type 1. Hypertension. GERD. Obesity. Assessment/Plan Continued all current supportive medical care. Left heart cath. Risks and benefits discussed with the patient. Aspirin, Lipitor, Metoprolol, Brilinta. Heparin drip per pharmacy. IV Hydralazine for SBP > 150. Morphine for pain management. Additional plan as per the hospital course. Plan discussed with: Patient JR DAVENPORT MD May 23, 2025 19:07
--- NOTE | 2025-05-23 20:30 | DVHSR ---
APPROVED REPORT EXAM: Two-dimensional and M-mode echocardiogram with Doppler and color Doppler. Blood Pressure: 146/75 mmHg INDICATION Chest Pain RISK FACTORS Obesity: Height: 6'2", Weight: 245 DIMENSIONS LVDd5.7 (3.8-5.7cm)LA (2D)4.6 (1.9-4.0cm)Aortic Root3.1 (2.0-3.7cm) LVDs4.0 (2.5-4.0cm)LA (MM) (1.9-4.0cm)Aortic Cusp Exc1.3 (1.5-2.0cm) EF (%) 56.0 (55-70%)Rt. Atrium5.3 (1.9-4.0cm)Asc. Aorta cm IVSd1.4 (0.7-1.1cm)RV (D)5.2 (1.8-2.4cm) PWd1.2 (0.7-1.1cm) Mitral Valve MitralMitral Stenosis E wave0.95m/sMV Mean GR.mmHg A wave0.97m/sMV Peak GR.mmHg E/A ratio1.02D MVAcm2 DECEL [id number] 1/2 Timems Aortic Valve Aortic ValveAortic Stenosis V10.86m/Subha Mean GR.10mmHg V22.08m/Subha Peak GR.17mmHg LVOT Diameter2.1 (1.8-2.4cm)Doppler AVA1.43cm2 AI P 1/2 Qops881.30ms Pulmonic Valve V21.05m/s Tricuspid Valve TR Velocity2.74m/s [id number] Other Information Technically limited study due to body habitus. Conclusion MODERATE DEGREE LVH AND MODERATE LV DIASTOLIC DYSFUNCTION LV EF IS 65% MODERATELY DILATED LA MODERATELY RV AND RA MODERATE DEGREE MR VERY HEAVILY CALCIFIED AORTIC LEAFLETS AORTIC VALVE AREA IS 1.43 CM SQUARE MODERATE AORTIC STENOSIS MODERATE DEGREE AORTIC REGURGITATION NO EFFUSION
--- NOTE | 2025-05-23 20:40 | DVHPN2 ---
Assessment/Plan Assessment/Plan progress note 75 M with GERD and HTN admitted for chest pain, found to have NSTEMI seen today. [facility] today, on heparin drip physical exam aox4 comfortable clear breath sound s1 s2 rrr abdomen soft no LE edema labs ekg imaging reviewed assessment and plan NSTEMI HTN HLD GERD [facility] today dapt bb statin ppi diet NPO dvt ppx lovenox full code Plan discussed with: Patient Date of Service: May 23, 2025 Billing Provider: DAXA MATUTE MD Common Visit Codes: [id number] INP/OBS CARE(HIGH) DAXA MATUTE MD May 23, 2025 20:40
--- NOTE | 2025-05-23 21:44 | DVHOP ---
DATE OF SURGERY: 05/23/2025 TECHNIQUES PERFORMED: * Emergency case. * Insertion of a 6-Scottish arterial line from the right femoral artery. * Management of conscious sedation. * Left coronary artery angiography. * Mechanical thrombectomy of the left obtuse marginal artery. * Balloon angioplasty of the obtuse marginal artery arising from circumflex with 2.0 x 15 mm length semi-compliant balloon. * Stenting and angioplasty of obtuse marginal artery with 2.75 x 15 mm length [place] Met[place]ora stent from [employer] and ultimately made the stent size to 3.10 mm in size. * Intravascular ultrasound of coronary. * Use of the right iliofemoral artery angiography. * Arteriotomy, Angio-Seal of the right femoral artery. * Use of the GuideLiner during this procedure, Juan Pablo. COMPLICATIONS: None. ASSISTANTS: Assisted by our staff here is Gutierrez. Other assistants are Pebbles Brody Angie. Today is an emergency case. INDICATIONS: The patient is having acute [id number] myocardial infarction and troponin in many thousands, 10/10 chest pain. DESCRIPTION OF PROCEDURE: The risks and benefits all have been explained to the patient in a standard manner. The patient had been brought to our laborer salvage urgently on Saturday at approximately 6:00 p.m. and the patient's right groin was shaved, cleaned with soap and Betadine. A 6-Scottish arterial line was placed after giving IV Versed, fentanyl and also lidocaine. We have put an XB 4.0, 6-Scottish guiding catheter and left coronary angio done. IV Angiomax was given. We put Whisper MS wire and we were able to get into the obtuse marginal artery with the help of a 2.0 x 15 mm length balloon and the patient was already given Angiomax. Subsequently now, we pulled out the balloon. We put an [place] catheter to do the mechanical thrombectomy and the [place] catheter came to the circumflex artery. We were unable to negotiate the tortuosity, so having discontinued after some suction. Subsequently now, we put a 2.0 x 15 mm length balloon. Before that, we also put a GuideLiner and GuideLiner was able to catheterize the balloon into the obtuse marginal artery. Balloon angioplasty of the marginal artery was done by taking a balloon up to 17 atmospheres and balloon size was increased to 2.40 mm in size. very well. The balloon subsequently. Now, we put a stent 2.75 x 15 mm length [place] Met[place]ora stent and with the help of a GuideLiner, it went through very well and was being deployed in the mid region of the left obtuse marginal artery. We had taken up to 13 atmospheres, 15, 17 and 19 atmospheres. Stent size was increased to 3.10 mm in size. Inflated. With balloon deflated, balloon had been discontinued. Angiography was satisfactory. Subsequently, we also pulled out the GuideLiner and now we have put intravascular ultrasound and unable to negotiate the tortuosity and have been discontinued subsequently now. The result was satisfactory. Now we have done the right iliofemoral artery angiography, arteriotomy, Angio-Seal also had been done. CONCLUSION: * Prior to performing the procedure #1, the left circumflex is the large dominant artery. * The left obtuse marginal artery arising from circumflex artery is very tortuous, but narrowed, 99.9% TAHIR grade 2 flow has been noted and type C lesion. * The preprocedure TAHIR grade 2 flow, postprocedure TAHIR grade 3 flow and the residual stenosis is 0%. No spasm, no dissection, no thrombosis. Procedure went well. PLAN OF ACTION: Advised aspirin, Brilinta, beta-laya and cholesterol-reducing medicine, and outpatient followup. Karen Dumas MD MP/DANIELITO/CAROLYN/CASANDRA TID: [id number] RECEIPT: [id number] [facility]
[2025-05-23] MEDS: ATORVASTATIN 20 MG TAB PO SCH (21:57)
[2025-05-24] VITALS (8 sets, daily range): BP systolic 124–146; BP diastolic 69–99; PULSE 54–66; RESP 12–18; TEMP 97.4–99.6; O2SAT 96–100
--- NOTE | 2025-05-24 03:20 | DVHOP ---
DATE OF SURGERY: 05/23/2025 TECHNIQUES PERFORMED: * Emergency case. * Insertion of a 6-Citizen Of [place] arterial line from the right femoral artery under fluoroscopic guidance and supervision. * Left heart cath. * Left ventriculogram. * [place] selective left and right coronary artery angiography. ASSISTANTS: Assisted by our staff brigid Zarate. Other assistants are Nanette Brody and Pebbles. Emergency case on 05/23/2025, on Saturday at approximately 6:00 p.m. INDICATIONS: The patient has [id number] myocardial infarction, 05/21 chest pain. DESCRIPTION OF PROCEDURE: Risks and benefits all have been explained to patient, understood and accepted very well. The patient was brought urgently to analytical lab technician. The right groin was shaved, cleaned with soap and Betadine. A 6-Citizen Of [place] arterial line was placed under fluoroscopy. The JL4 catheter was unable to engage, JL5 catheter was able to engage was performed. At the end of the procedure, we also did a left heart cath and left ventriculogram with the help of the pigtail catheter. The left ventriculogram was done in the right anterior oblique view with total of 20 mL dye. Post-LV gram, left ventricular angiography had been performed with the help of pull-through technique. Aortic pressure was also performed. J-wire was passed. The pigtail catheter also had been discontinued. Procedure completed. IMPRESSION: * Normal left main. * Left anterior descending artery widely open, appears to be normal, tortuous. * The circumflex artery is a large luminal artery, normal. * The obtuse marginal artery is also a large artery and in the mid region narrowed, 99.9% with thrombogenic lesion, type C. * The right coronary artery is a nondominant artery, normal. * Ejection fraction in the range of 75%. PLAN OF ACTION: As follows: Advised the patient to undergo the intervention on the large obtuse marginal artery. Karen Dumas MD MP/JAC/ZIA/CASANDRA TID: [id number] RECEIPT: [id number]
[2025-05-24 06:26] LABS: Hematocrit 33.3 % (41.0-53.0); Hemoglobin 11.0 g/dL (13.5-17.5); Mean Corpuscular Hemoglobin 25.2 pg (28.0-32.0); Mean Corpuscular Volume 76.0 fL (80.0-100.0); Nucleated Red Blood Cells % 0.0 %
[2025-05-24 06:47] LABS: Alanine Aminotransferase 27 U/L (7-40); Alkaline Phosphatase 54 U/L (46-116); Anion Gap 8 (5-15); BUN/Creatinine Ratio 10.6 (10.0-20.0); Blood Urea Nitrogen 10 mg/dL (9-23); Carbon Dioxide 28 mmol/L (20-31); Chloride 103 mmol/L (98-107); Glucose 95 mg/dL (74-106); Sodium 139 mmol/L (136-145); Total Protein 6.3 g/dL (5.7-8.2)
[2025-05-24 06:48] LABS: Albumin 3.4 g/dL (3.2-4.8)
[2025-05-24 06:49] LABS: Bilirubin, Total 1.2 mg/dL (0.2-1.0); Calcium 8.0 mg/dL (8.7-10.4); Potassium 3.5 mmol/L (3.5-5.1)
[2025-05-24] MEDS: ASPirin-EC 81 mg tab PO SCH (09:15)
[2025-05-24] MEDS: TICAGRELOR 90 MG TAB PO SCH (09:16)
--- NOTE | 2025-05-24 09:43 | ECG ---
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
--- NOTE | 2025-05-24 18:16 | DVHPN2 ---
Assessment/Plan Assessment/Plan progress note 75 M with GERD and HTN admitted for chest pain, found to have NSTEMI seen today. s/p LHC, DESx1 in OM1. on brilinta and asa. meds to bed, dispo for tomorrow physical exam aox4 comfortable clear breath sound s1 s2 rrr abdomen soft no LE edema labs ekg imaging reviewed assessment and plan NSTEMI HTN HLD GERD LHC today dapt brilinta asa bb statin ppi diet cardiac dvt ppx lovenox full code Plan discussed with: Patient Date of Service: May 24, 2025 Billing Provider: DAXA MATUTE MD Common Visit Codes: [id number] INP/OBS CARE(HIGH) DAXA MATUTE MD May 24, 2025 18:16
[2025-05-24] MEDS ORDERED: TICA90TA PO (18:19)
[2025-05-24] MEDS ORDERED: ASPI-325 PO (18:19)
[2025-05-24] MEDS ORDERED: ATOR-47 PO (18:19)
[2025-05-24] MEDS ORDERED: METO1TAB9 PO (18:19)
--- NOTE | 2025-05-24 22:47 | DVHPN2 ---
Progress Note - Dictate Date Seen: May 24, 2025 Medical Necessity Reason Pt with a Central, PICC or Fol: No Subjective Patient was seen and evaluated in follow up. Patient underwent emergency left heart cath, [place] selective left and right coronary artery angiography, left coronary artery angiography, mechanical thrombectomy of the left obtuse marginal artery, balloon angioplasty of the obtuse marginal artery arising from circumflex, stenting and angioplasty of obtuse marginal artery. Prior to performing the procedure #1, the left circumflex is the large dominant artery. The left obtuse marginal artery arising from circumflex artery is very tortuous, but narrowed, 99.9% TAHIR grade 2 flow has been noted and type C lesion. The preprocedure TAHIR grade 2 flow, postprocedure TAHIR grade 3 flow and the residual stenosis is 0%. No spasm, no dissection, no thrombosis. Procedure went well. Patient is advised aspirin, Brilinta, beta-laya and cholesterol-reducing medicine, and outpatient followup. Telemetry reviewed. vital signs Vital Sign Date Time Temp Pulse Resp B/P (MAP) Pulse Ox O2 Delivery O2 Flow Rate FiO2 05/24/25 21:32 61 146/81 05/24/25 17:00 98.3 12 100 98.3 05/24/25 08:00 Room Air* 0 21 Total Intake and Output 05/23/25 05/23/25 05/24/25 15:00 23:00 07:00 Intake Total 112 ml 0 ml 240 ml Output Total 200 ml Balance 112 ml 0 ml 40 ml medications Current Medications Medications Dose Ordered Sig/Jose Route Start Time Stop Time Status Last Admin Dose Admin Famotidine 20 mg BID GT 05/22/25 22:00 Cancel Acetaminophen 650 mg Q6HP PRN PO 05/22/25 16:15 05/23/25 06:30 650 MG Atorvastatin Calcium 80 mg HS PO 05/22/25 22:00 05/24/25 21:32 80 MG Metoprolol Tartrate 50 mg BID PO 05/23/25 10:00 05/24/25 21:32 50 MG Ticagrelor 90 mg BID PO 05/24/25 10:00 05/24/25 21:32 90 MG Aspirin 81 mg DAILY PO 05/24/25 10:00 05/24/25 09:15 81 MG objective GENERAL: Alert and oriented x 3. No acute distress. EYES: PERRL, EOMI. Anicteric. HENT: Moist mucous membranes. LUNGS: Clear to auscultation bilaterally. CARDIOVASCULAR: Regular rate and rhythm. ABDOMEN: Soft, nontender and nondistended. EXTREMITIES: No edema. NEUROLOGIC: No focal neurological deficits. SKIN: Warm, dry. laboratory and microbiology Laboratory Tests 05/24/25 06:05 Test 05/24/25 06:05 Range/Units Serum Glucose 95 74-106 mg/dL Problem List Non-STEMI possible type 1. Hypertension. GERD. Obesity. Assessment/Plan Continued all current supportive medical care. Aspirin, Lipitor, Metoprolol, Brilinta. Heparin drip per pharmacy. IV Hydralazine for SBP > 150. Morphine for pain management. Additional plan as per the hospital course. Plan discussed with: Patient JR DAVENPORT MD May 24, 2025 22:47
[2025-05-25 00:56] VITALS: BP 158/95; PULSE 72; RESP 18; TEMP 98.6; O2SAT 100
[2025-05-25 04:49] VITALS: BP 156/92; PULSE 57; RESP 17; TEMP 98.6; O2SAT 99
[2025-05-25 08:00] VITALS: PULSE 59; PULSE 64; RESP 16; O2SAT 97
--- NOTE | 2025-05-25 13:50 | DVHDS2 ---
Discharge Summary Date of Admission May 22, 2025 at 16:07 Date of Discharge: May 25, 2025 Labs/Diagnostic Data: Laboratory Results Test 05/24/25 06:05 05/23/25 14:00 05/23/25 08:40 05/23/25 01:36 White Blood Count 6.4 10^3/uL (4.4-10.8) Red Blood Count 4.38 10^6/uL (4.5-5.90) Hemoglobin 11.0 g/dL (13.5-17.5) Hematocrit 33.3 % (41.0-53.0) Mean Corpuscular Volume 76.0 fL (80.0-100.0) Mean Corpuscular Hemoglobin 25.2 pg (28.0-32.0) Mean Corpuscular Hemoglobin Concent 33.1 g/dL (32.0-36.0) Red Cell Distribution Width 15.4 % (11.8-14.3) Platelet Count 191 10^3/uL (140-450) Mean Platelet Volume 8.1 fL (6.9-10.8) Neutrophils (%) (Auto) 62.5 % (37.0-80.0) Lymphocytes (%) (Auto) 21.6 % (10.0-50.0) Monocytes (%) (Auto) 15.6 % (0.0-12.0) Eosinophils (%) (Auto) 0.1 % (0.0-7.0) Basophils (%) (Auto) 0.2 % (0.0-2.0) Neutrophils # (Auto) 4.0 10 ^3/uL (1.6-8.6) Lymphocytes # (Auto) 1.4 10 ^3/uL (0.4-5.4) Monocytes # (Auto) 1.0 10 ^3/uL (0-1.3) Eosinophils # (Auto) 0 10 ^3/uL (0-0.8) Basophils # (Auto) 0 10 ^3/uL (0-0.2) Nucleated Red Blood Cells 0.0 % Sodium Level 139 mmol/L (136-145) Potassium Level 3.5 mmol/L (3.5-5.1) Chloride Level 103 mmol/L (98-107) Carbon Dioxide Level 28 mmol/L (20-31) Anion Gap 8 (5-15) Blood Urea Nitrogen 10 mg/dL (9-23) Creatinine 0.94 mg/dL (0.700-1.30) Glomerular Filtration Rate Calc 86 mL/min (>90) BUN/Creatinine Ratio 10.6 (10.0-20.0) Serum Glucose 95 mg/dL (74-106) Calcium Level 8.0 mg/dL (8.7-10.4) Total Bilirubin 1.2 mg/dL (0.2-1.0) Aspartate Amino Transferase (AST) 104 U/L (13-40) Alanine Aminotransferase (ALT) 27 U/L (7-40) Alkaline Phosphatase 54 U/L (46-116) B-Type Natriuretic Peptide 192.00 pg/mL (0-100) Total Protein 6.3 g/dL (5.7-8.2) Albumin 3.4 g/dL (3.2-4.8) SARS-CoV-2 Antigen (Rapid) Negative (NEGATIVE) Prothrombin Time 11.4 sec (9.3-11.8) Prothrombin Time INR 1.08 (0.9-1.15) Activated Partial Thromboplast Time 45.9 SEC (24.5-34.5) Magnesium Level 1.8 mg/dL (1.6-2.6) Triglycerides Level 56 mg/dL (< 150) Cholesterol Level 163 mg/dL (< 200) LDL Cholesterol 105 mg/dL (< 100) HDL Cholesterol 60 mg/dL (40-59) Test 05/22/25 22:55 05/22/25 16:10 05/22/25 14:51 05/22/25 13:05 Troponin I High Sensitivity 90657 ng/L (</=54) Urine Color Colorless (Yellow) Urine Clarity Clear (Clear) Urine pH 6.0 (5.0-9.0) Urine Specific [place] 1.004 (1.001-1.035) Urine Protein Negative (Negative) Urine Ketones Negative (Negative) Urine Blood Negative /uL (Negative) Urine Nitrite Negative (Negative) Urine Bilirubin Negative (Negative) Urine Urobilinogen Normal mg/dL (Negative) Urine Leukocyte Esterase Negative /uL (Negative) Urine RBC <1 /hpf (0 - 3) Urine Microscopic WBC < 1 /HPF (0-3) Urine Squamous Epithelial Cells None seen /hpf (<5) Urine Bacteria None seen /hpf (None Seen) Urine Glucose Normal mg/dL (Normal) Urine Opiates Screen Neg (NEGATIVE) Urine Fentanyl Screen Neg (NEGATIVE) Urine Barbiturates Screen Neg (NEGATIVE) Urine Phencyclidine Screen Neg (NEGATIVE) Urine Amphetamines Screen Neg (NEGATIVE) Urine Benzodiazepines Screen Neg (NEGATIVE) Urine Cocaine Screen Neg (NEGATIVE) Urine Cannabinoids Screen Neg (NEGATIVE) Thyroid Stimulating Hormone (TSH) 1.84 uIU/mL (0.55-4.78) Free Thyroxine (T4) Calculated 1.20 ng/dL (0.89-1.76) Test 05/22/25 11:11 Hemoglobin A1c 5.6 % A1C (<5.7) Other Laboratory Tests 05/24/25 06:05 Final Diagnosis/Problems List NSTEMI Discharge Disposition: Home Discharge Instruct/Medications Diet: Cardiac 2g Na,low cholest Activity: No Restrictions, As Tolerated Medications: asa brilinta lipitor Scheduled Aspirin (Aspirin Low Dose), 81 MG PO DAILY Atorvastatin Calcium (Atorvastatin Calcium), 1 TAB PO DAILY Famotidine (Pepcid Tablet), 20 MG GT BID Metoprolol Succinate (Metoprolol Succinate Er), 100 MG PO DAILY Nifedipine (Nifedipine Er), 1 TAB PO DAILY, (Reported) Ticagrelor Base (Brilinta), 90 MG PO BID Scheduled PRN Alum & Mag Hydrox-Simethicone (Maalox Plus), 30 ML GT Q6HPRN PRN Discharge Statement: "Patient was advised to return to the ER or call 911 if any headaches, dizziness, shortness of breath, chest pain, abdominal pain, bleeding, fevers, or worsening of medical condition. Patient was counseled about treatment plan, medications, possible side effects, patientverbalized understanding. All questions were answered to the best of my ability. This discharge took greater then 30 minutes in planning, reviewing documentation, counseling the patient, and discussing with other team members." ASSESSMENT ASSESSMENT Assessment NSTEMI Date of Service: May 25, 2025 Billing Provider: DAXA MATUTE MD Common Visit Codes: 08332-YAN/OBS DISCH DAY >30min DAXA MATUTE MD May 25, 2025 13:50
[2025-05-25] MEDS ORDERED: METO1TAB9 PO (15:02)
[2025-05-25] MEDS ORDERED: ATOR80TA PO (15:02)
[2025-05-25] MEDS ORDERED: TICA90TA PO (15:02)
[2025-05-25] MEDS ORDERED: ASPI-498 OR (15:02)
[2025-05-25 16:46] VITALS: BP 159/91; PULSE 56; RESP 17; TEMP 97.9; O2SAT 100
--- NOTE | 2025-05-26 02:57 | DVHPN2 ---
Progress Note - Dictate Date Seen: May 25, 2025 Medical Necessity Reason Pt with a Central, PICC or Fol: No Subjective Patient was seen and evaluated in follow up. Patient has no new complaints at this time. Patient denies any cardiac symptoms. Patient is cardiac stable for discharge. Telemetry reviewed. vital signs Vital Sign Date Time Temp Pulse Resp B/P (MAP) Pulse Ox O2 Delivery O2 Flow Rate FiO2 05/25/25 10:00 70 121/89 05/25/25 08:00 16 97 Room Air* 0 21 05/25/25 04:49 98.6 98.6 Total Intake and Output 05/24/25 05/24/25 05/25/25 15:00 23:00 07:00 Intake Total 800 ml 400 ml Output Total 400 ml 676 ml Balance 400 ml -276 ml medications Current Medications Medications Dose Ordered Sig/Jose Route Start Time Stop Time Status Last Admin Dose Admin Famotidine 20 mg BID GT 05/22/25 22:00 Cancel Acetaminophen 650 mg Q6HP PRN PO 05/22/25 16:15 05/23/25 06:30 650 MG Atorvastatin Calcium 80 mg HS PO 05/22/25 22:00 05/24/25 21:32 80 MG Metoprolol Tartrate 50 mg BID PO 05/23/25 10:00 05/25/25 10:00 50 MG Ticagrelor 90 mg BID PO 05/24/25 10:00 05/25/25 10:00 90 MG Aspirin 81 mg DAILY PO 05/24/25 10:00 05/25/25 10:00 81 MG objective GENERAL: Alert and oriented x 3. No acute distress. EYES: PERRL, EOMI. Anicteric. HENT: Moist mucous membranes. LUNGS: Clear to auscultation bilaterally. CARDIOVASCULAR: Regular rate and rhythm. ABDOMEN: Soft, nontender and nondistended. EXTREMITIES: No edema. NEUROLOGIC: No focal neurological deficits. SKIN: Warm, dry. laboratory and microbiology Laboratory Tests 05/24/25 06:05 Test 05/24/25 06:05 Range/Units Serum Glucose 95 74-106 mg/dL Problem List Non-STEMI possible type 1. Hypertension. GERD. Obesity. Assessment/Plan Continued all current supportive medical care. Aspirin, Metoprolol, Brilinta. Tylenol for pain management. Additional plan as per the hospital course. Plan discussed with: Patient JR DAVENPORT MD May 25, 2025 14:10
--- NOTE | 2025-05-27 09:17 | ECG ---
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
== END 2025-05-25 19:26 | disposition home or self-care (01) | DRG 359 ==
LOC: ER 10:48 → OVERFLOW 16:07 → TELE-CENTR 05-23 13:16
PROVIDERS: ADMIT Student in an Organized Health Care Education/Training Program; ATTEND Student in an Organized Health Care Education/Training Program
PROC: 04HY32Z Insertion of Monitoring Device into Lower Artery, Percutaneous Approach (ICD-10-PCS; principal; 2025-05-23)
PROC: 02C03ZZ Extirpation of Matter from Coronary Artery, One Artery, Percutaneous Approach (ICD-10-PCS; 2025-05-23)
PROC: 027034Z Dilation of Coronary Artery, One Artery with Drug-eluting Intraluminal Device, Percutaneous Approach (ICD-10-PCS; 2025-05-23)
PROC: B215YZZ Fluoroscopy of Left Heart using Other Contrast (ICD-10-PCS; 2025-05-23)
PROC: 4A023N7 Measurement of Cardiac Sampling and Pressure, Left Heart, Percutaneous Approach (ICD-10-PCS; 2025-05-23)
PROC: B211YZZ Fluoroscopy of Multiple Coronary Arteries using Other Contrast (ICD-10-PCS; 2025-05-23)
PROC: B41FYZZ Fluoroscopy of Right Lower Extremity Arteries using Other Contrast (ICD-10-PCS; 2025-05-23)
DX: I21.4 Non-ST elevation (NSTEMI) myocardial infarction (principal); I50.31 Acute diastolic (congestive) heart failure; R73.9 Hyperglycemia, unspecified; K21.9 Gastro-esophageal reflux disease without esophagitis; E87.6 Hypokalemia; Z20.822 Contact with and (suspected) exposure to COVID-19; E66.9 Obesity, unspecified; E78.5 Hyperlipidemia, unspecified; Z79.899 Other long term (current) drug therapy; Z68.32 Body mass index [BMI] 32.0-32.9, adult; I11.0 Hypertensive heart disease with heart failure
CPT/HCPCS: 36415; 71046; 80048; 80053; 80061; 80307; 81001; 83036; 83735; 83880; 84439; 84443; 84484; 85025; 85610; 85730; 87426; 92929; 92941; 92973; 93005; 93306; 93458; 96374; 96375; 99152; 99291; G0378; J2250; J3490; Q0162; Q9967